=== PATIENT | male | born 2000 | race Two or more races ===

== ENCOUNTER 2025-01-23 17:33 | Emergency (ER) | payer OTHER ==
[~2025-01-23] VITALS: Ht 170.2 cm; Wt 95.5 kg
[2025-01-23] MEDS ORDERED: BUPR1TAB45 SL (17:55)
[2025-01-23] MEDS: BUPRENORPHINE HCL/NALOXONE HCL 8-2 MG SUBLINGUAL TABLET SL ONE (19:15)
[2025-01-23 19:43] VITALS: BP 143/77; PULSE 88; RESP 18; TEMP 98.1; O2SAT 99
== END 2025-01-23 19:45 | disposition home or self-care (01) ==
LOC: EMS 17:35
DX: F11.20 Opioid dependence, uncomplicated (principal); Z79.899 Other long term (current) drug therapy
CPT/HCPCS: 99283